=== PATIENT | female | born 1990 | race American Indian/Alaskan Native ===

== ENCOUNTER 2017-11-20 00:42 | Emergency (ER) | payer OTHER ==
[2017-11-20 04:20] LABS: Basophils % (Auto) 0.3 % (0.0-1.8); Eosinophils # (Auto) 0.3 K/mm3 (0.0-0.4); Eosinophils % (Auto) 3.1 % (0.0-4.3); Hematocrit 34.5 % (30.3-42.9); Hemoglobin 11.5 gm/dl (10.1-14.3); Lymphocytes # (Auto) 3.1 K/mm3 (1.2-5.4); Lymphocytes % (Auto) 36.3 % (13.4-35.0); Mean Corpuscular HGB Conc 34 % (30-34); Mean Corpuscular Hemoglobin 30 pg (28-32); Mean Corpuscular Volume 88 fl (79-97); Monocytes # (Auto) 0.5 K/mm3 (0.0-0.8); Monocytes % (Auto) 6.1 % (0.0-7.3); Platelet Count 240 K/mm3 (140-440)
--- NOTE | 2017-11-20 08:43 | Ultrasound Report ---
ULTRASOUND OB LESS THAN 14 WEEKS FETUS ULTRASOUND OB TRANSVAGINAL HISTORY: Vaginal bleeding. COMPARISON: None at this facility. TECHNIQUE: Transabdominal and transvaginal ultrasound with doppler interrogation. FINDINGS: Uterus: The uterus is anteverted and measures 10.2 x 5.1 x 6.9 cm. No uterine mass is identified. Normal cervix. Endometrium: An intrauterine gestational sac containing a pole and yolk sac is identified. D[place]ham-rump length measures 3.8 mm which correlates with a 6 week, 0 day . Estimated due date 07/13/18. heart rate measures 112 beats per minute. A moderate subchorionic hemorrhage is identified anterior and superior to the gestational sac. Right ovary: 3.1 x 2.0 x 2.6 cm. No focal abnormality. Left ovary: 4.1 x 2.7 x 3.8 cm. There are 2 simple cysts of the left ovary measuring 1.8 cm and 2.0 cm. No pelvic fluid or mass is identified. Normal color doppler interrogation. IMPRESSION: Viable, single intrauterine as described. Moderate subchorionic hemorrhage. Left ovarian cysts.
[2017-11-20 08:59] LABS: Bacteria,Urine 1+ /HPF (Negative); Bilirubin,Urine NEG (Negative); Blood,Urine MOD (Negative); Color,Urine Yellow (Yellow); Protein,Urine <15 mg/dL mg/dL (Negative); Urobilinogen,Urine < 2.0 mg/dL (<2.0); WBC,Urine < 1.0 /HPF (0.0-6.0)
[2017-11-20 09:30] VITALS: BP 104/76
--- NOTE | 2017-11-20 09:37 | Emergency Department Report ---
ED HPI - General Chief complaint: Vaginal Bleeding Stated complaint: VAG BLEEDING Time Seen by Provider: 11/20/17 09:21 Source: patient Mode of arrival: Ambulatory Limitations: No Limitations - History of Present Illness Initial comments: 27-year-old female presents with complaint of intermittent vaginal bleeding with associated vaginal discharge for one week. Patient denies fevers chills nausea or vomiting but does complain of lower pelvic pain. Patient states she took a home test which was positive. States she has an OB/ [facility] [employer] [facility] near [facility]. Denies any dysuria or hematuria or increased urinary frequency but does report spotty to intermittent vaginal bleeding. MD Complaint: vaginal bleeding, vaginal discharge Onset/Timin -: week(s) Radiation: suprapubic Severity: mild Quality: cramping Consistency: constant Vaginal bleeding: light :: Yes Number of weeks : 6 OB History - Current : no complications Last menstrual period: 10/02/17 - Related Data : 4 Para: 2 Previous Rx's Medication Instructions Recorded Last Taken Type Clotrimazole [[id number]-0] 1 applicator VG QHS #1 cream.appl 11/20/17 Unknown Rx 21/Iron Fu/Folic Acid 1 each PO QDAY #30 tablet 11/20/17 Unknown Rx [ Complete Caplet] metroNIDAZOLE [Metronidazole] 500 mg PO BID #14 tablet 11/20/17 Unknown Rx Allergies Allergy/AdvReac Type Severity Reaction Status Date / Time ciprofloxacin [From Cipro] Allergy Anaphylaxis Verified 11/20/17 03:38 ED Review of Systems ROS: Stated complaint: VAG BLEEDING Other details as noted in HPI Constitutional: denies: chills, fever Eyes: denies: eye pain, eye discharge, vision change ENT: denies: ear pain, throat pain Respiratory: denies: cough, shortness of breath, wheezing Cardiovascular: denies: chest pain, palpitations Endocrine: no symptoms reported Gastrointestinal: denies: abdominal pain, nausea, diarrhea Genitourinary: discharge, abnormal menses. denies: urgency, dysuria Musculoskeletal: denies: back pain, joint swelling, arthralgia Skin: denies: rash, lesions Neurological: denies: headache, weakness, paresthesias Psychiatric: denies: anxiety, depression Hematological/Lymphatic: denies: easy bleeding, easy bruising ED Past Medical Hx - Past Medical History Additional medical history: Eczema - Surgical History Past Surgical History?: No - Social History Smoking Status: Never Smoker Substance Use Type: None - Medications Home Medications: Home Medications Medication Instructions Recorded Confirmed Last Taken Type Clotrimazole [[id number]] 1 applicator VG QHS #1 cream.appl 11/20/17 Unknown Rx 21/Iron Fu/Folic Acid 1 each PO QDAY #30 tablet 11/20/17 Unknown Rx [ Complete Caplet] metroNIDAZOLE [Metronidazole] 500 mg PO BID #14 tablet 11/20/17 Unknown Rx ED Physical Exam - General Limitations: No Limitations General appearance: alert, in no apparent distress - Head Head exam: Present: atraumatic, normocephalic - Eye Eye exam: Present: normal appearance, PERRL, EOMI - ENT ENT exam: Present: mucous membranes moist - Neck Neck exam: Present: normal inspection - Respiratory Respiratory exam: Present: normal lung sounds bilaterally. Absent: respiratory distress - Cardiovascular Cardiovascular Exam: Present: regular rate, normal rhythm. Absent: systolic murmur, diastolic murmur, rubs, gallop - GI/Abdominal GI/Abdominal exam: Present: soft, normal bowel sounds - Speculum exam: Present: vaginal bleeding - Extremities Exam Extremities exam: Present: normal inspection - Back Exam Back exam: Present: normal inspection - Neurological Exam Neurological exam: Present: alert, oriented X3 - Psychiatric Psychiatric exam: Present: normal affect, normal mood - Skin Skin exam: Present: warm, dry, intact, normal color. 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 I informed patient she has subchorionic hemorrhage which increases likelihood of spontaneous miscarriage 3-current ultrasound shows IUP at approximately 6 weeks with heart rate 4-patient is Rh+ Critical care attestation.: If time is entered above; I have spent that time in minutes in the direct care of this critically ill patient, excluding procedure time. ED Disposition Clinical Impression: Threatened in first trimester Subchorionic hemorrhage in first trimester Qualifiers: Fetus number: single or unspecified fetus Qualified Code(s): O41.8X10 - Other specified disorders of amniotic fluid and membranes, first trimester, not applicable or unspecified Disposition: DC-01 TO HOME OR SELFCARE Is pt being admited?: No Does the pt Need Aspirin: No Condition: Stable Instructions: Threatened Miscarriage (ED) Prescriptions: Clotrimazole [[id number]] 1 applicator VG QHS #1 cream.appl metroNIDAZOLE [Metronidazole] 500 mg PO BID #14 tablet 21/Iron Fu/Folic Acid [ Complete Caplet] 1 each PO QDAY #30 tablet Referrals: [facility] [Provider Group] - 3-5 Days Forms: Work/School Release Form(ED) Time of Disposition: 09:37
== END 2017-11-20 09:48 | disposition home or self-care (01) ==
LOC: ED 00:42
DX: O20.0 Threatened abortion (principal); Z3A.01 Less than 8 weeks gestation of pregnancy
CPT/HCPCS: 36415; 76801; 76817; 81001; 84702; 85025; 86850; 86900; 86901; 87210; 99284